=== PATIENT | male | born 1985 | race Caucasian/White ===

== ENCOUNTER 2017-03-26 16:14 | Emergency (ER) | payer MEDICAID, OTHER ==
[~2017-03-26] VITALS: Ht 175.3 cm; Wt 71.5 kg
[2017-03-26 16:15] VITALS: Ht 175.3 cm; Wt 71.5 kg
[2017-03-26] MEDS ORDERED: ACYC400T2 PO (16:32)
--- NOTE | 2017-03-26 17:24 | ERD ---
ER Documentation Chief Complaint Date/Time DATE: 03/26/17 TIME: 17:19 Chief Complaint IN ED FOR STD CHECK HPI 32-year-old male comes in with painful vesicular rash on his penis for the past 3 days. He states that he had oral sex with a female partner about a week ago. He has never had lesions like this before. He denies any fevers, chills. He denies dysuria, urgency or frequency. No penile discharge. He denies dysuria urgency or frequency. ROS All systems reviewed and are negative except as per history of present illness. Medications Home Meds Active Scripts Acyclovir* (Acyclovir*) 400 Mg Tablet, 400 MG PO TID for 7 Days, TAB Prov:REBEKAH TORO PA-C 03/26/17 Allergies Allergies: Coded Allergies: No Known Allergy (Unverified , 03/26/17) PMhx/Soc Medical and Surgical Hx: pt denies Medical Hx, pt denies Surgical Hx History of Surgery: No Anesthesia Reaction: No Hx Neurological Disorder: No Hx Respiratory Disorders: No Hx Cardiac Disorders: No Hx Psychiatric Problems: No Hx Miscellaneous Medical Probl: No Hx Substance Use: No Hx Tobacco Use: Yes Smoking Status: Current every day smoker Physical Exam Vitals Vital Signs Date Time Temp Pulse Resp B/P Pulse Ox O2 Delivery O2 Flow Rate FiO2 03/26/17 16:15 98.5 98 19 116/60 97 Physical Exam General: Well-developed, well-nourished. The patient appears in no acute distress. HEENT: Head is normocephalic, atraumatic. No scleral icterus. Neck: Supple. Nontender. Lungs: Clear to auscultation. Normal air movement. Heart: Regular rate and rhythm. S1 and S2 are normal. No murmurs, gallops, or rubs. Abdomen: Nondistended. : There are grouped vesicular lesions on the shaft, no discharge. Extremities: No clubbing or cyanosis. Moving extremities x 4. No weakness. Procedures/MDM 32-year-old male comes in with HSV lesions on the shaft of the penis for the past 3 days. No chancre, no signs of disseminated disease, sepsis, gonorrhea or chlamydia. Advised patient if he has any concern for other STDs that he is to follow-up with the clinic, as it may be done outpatient. Patient does not have any other symptoms at this time Departure Diagnosis: Primary Impression: Genital HSV Condition: Good Patient Instructions: Herpes Genitalis, Hsv: Type Ii Additional Instructions: Call your primary care doctor TOMORROW for an appointment during the next 1-2 days.See the doctor sooner or return here if your condition worsens before your appointment time. REBEKAH TORO PA-C March 26, 2017 17:24
== END 2017-03-26 16:43 | disposition home or self-care (01) ==
LOC: FTE 16:14
DX: A60.02 Herpesviral infection of other male genital organs (principal); F17.210 Nicotine dependence, cigarettes, uncomplicated
CPT/HCPCS: 99283